=== PATIENT | female | born 1990 | race Caucasian/White ===

== ENCOUNTER → 2021-02-13 | Outpatient (CLI) | payer OTHER ==
--- NOTE | 2021-02-13 09:06 | RAD ---
EXAMINATION: US ABDOMEN COMPLETE CLINICAL HISTORY: Heartburn, nausea/vomiting TECHNIQUE: Grayscale sonographic imaging of the abdomen obtained with color Doppler imaging and spect ral Doppler analysis as indicated. COMPARISON: None FINDINGS: Pancreas: Normal sonographic appearance. - Portions obscured: Tail - Lesions: None Liver: - Echotexture: Normal, homogeneous. - Echogenicity: Increased, suggestive of steatosis. - Surface contour: Smooth - Lesions: None Biliary: No intrahepatic biliary duct dilation. - CBD: 6 mm. - Gallbladder: Normal caliber - Contents: No cholelithiasis - Wall: Normal - Other: No pericholecystic fluid. Spleen: - Craniocaudal length: 10.0 cm. - Lesions: None Right Kidney: - Renal length: 10.2 cm - Parenchyma: Normal parenchymal echogenicity. Normal parenchymal thickness. - Collecting system: No hydronephrosis. - Calculus: No echogenic, shadowing calculus. - Lesion: None Left Kidney: - Renal length: 10.7 cm - Parenchyma: Normal parenchymal echogenicity. Normal parenchymal thickness. - Collecting system: No hydronephrosis. - Calculus: No echogenic, shadowing calculus. - Lesion: None IVC: Imaged segments patent. Abdominal Aorta: Imaged segments patent. Ascites: None. IMPRESSION: Findings suggestive of hepatic steatosis. Electronically signed by: Javad French DO (02/13/2021 9:04 AM) [id number]
== END ==
LOC: US 07:42
PROVIDERS: ATTEND Internal Medicine Gastroenterology
DX: R12 Heartburn (principal); R11.2 Nausea with vomiting, unspecified
CPT/HCPCS: 76700

== ENCOUNTER 2021-05-02 10:59 | Emergency (ER) | payer OTHER ==
[~2021-05-02] VITALS: Ht 172.7 cm; Wt 104.7 kg
[2021-05-02] MEDS: ACETAMINOPHEN 500 MG TABLET PO ONE (11:38)
[2021-05-02] MEDS: IV NORMAL SALINE 1,000ML 1,000 ML IV ONE (11:39)
--- NOTE | 2021-05-02 11:47 | PHYS DOC ---
General Adult EDM: Chief Complaint: SHORTNESS OF BREATH HPI: HPI: 30-year-old female presents with body aches, fever, shortness of breath, fatigue. The patient is not vaccinated against COVID-19. Her symptoms started 3 days ago. She denies any serious medical history such as diabetes or heart disease. She has a fever on arrival of 102. She is pretty sure she has COVID- 19. Review of Systems: Review of Systems: Constitutional: Fever, body aches, fatigue. Eyes: Denies change in visual acuity HENT: Denies nasal congestion or sore throat Respiratory: Intermittent cough with shortness of breath Cardiovascular: Denies chest pain or edema GI: Denies abdominal pain, nausea, vomiting, bloody stools or diarrhea : Denies dysuria Musculoskeletal: Denies back pain or joint pain Integument: Denies rash Neurologic: Denies headache, focal weakness or sensory changes Endocrine: Denies polyuria or polydipsia Lymphatic: Denies swollen glands Psychiatric: Denies depression or anxiety Current Medications: Current Meds: Current Medications Medications (Trade) Dose Ordered Sig/Cory Start Time Stop Time Status Last Admin Dose Admin Acetaminophen (Tylenol) 1,000 mg 1X ONCE 05/02/21 11:30 05/02/21 11:31 DC Sodium Chloride 1,000 ml @ 1,000 mls/hr 1X ONCE 05/02/21 11:30 05/02/21 12:29 Allergies: Allergies: Allergies Coded Allergies Type Severity Reaction Last Updated Verified No Known Drug Allergies 05/02/21 No Physical Exam: PE: Constitutional: Well developed, well nourished, morbidly obese, no acute distress, non-toxic appearance. [] HENT: Normocephalic, atraumatic, bilateral external ears normal, oropharynx moist, no oral exudates, nose normal. [] Eyes: PERRLA, EOMI, conjunctiva normal, no discharge. [] Neck: Normal range of motion, no tenderness, supple, no stridor. [] Cardiovascular: Heart rate regular rhythm, no murmur [] Lungs & Thorax: Bilateral breath sounds clear to auscultation [] Abdomen: Bowel sounds normal, soft, no tenderness, no masses, no pulsatile masses. [] Skin: Warm, dry, no erythema, no rash. [] Back: No tenderness, no CVA tenderness. [] Extremities: No tenderness, no cyanosis, no clubbing, ROM intact, no edema. [] Neurologic: Alert and oriented X 3, normal motor function, normal sensory function, no focal deficits noted. [] Psychologic: Affect normal, judgement normal, mood normal. [] EKG: EKG: [] Radiology/Procedures: Radiology/Procedures: [] Impressions: INDICATION: Reason: covid / Spl. Instructions: / History: COMPARISON: None. FINDINGS: Single view of chest obtained. Hypoexpanded exam. Cardiac silhouette is prominent in size but likely exaggerated by portable technique. Focal opacity at the left lung base. IMPRESSION: * Focal opacity at the left lung base which could be infectious in nature with pneumonia. Follow-up could be obtained to ensure this appropriately resolves. Electronically signed by: Abhi Muhammad MD (05/02/2021 12:16 PM) [id number] DICTATED AND SIGNED BY: ABHI MUHAMMAD MD DATE: 05/02/21 1215 CC: NONI HARRELL DO; PERLITA SWEET DO ~MTH0 0 Heart Score: C/O Chest Pain: N/A Risk Factors: Risk Factors: DM, Current or recent (<one month) smoker, HTN, HLP, family history of CAD, obesity. Risk Scores: Score 0 - 3: 2.5% MACE over next 6 weeks - Discharge Home Score 4 - 6: 20.3% MACE over next 6 weeks - Admit for Clinical Observation Score 7 - 10: 72.7% MACE over next 6 weeks - Early Invasive Strategies Course & Med Decision Making: Course & Med Decision Making Pertinent Labs and Imaging studies reviewed. (See chart for details) The patient's story and evaluation are likely COVID-19. Her chest x-ray does show possible left lower infiltrate I will treat her with azithromycin and Decadron. I will discharge her with prescription for both. She is stable for discharge at this time. [] Dragon Disclaimer: Mabel Disclaimer: This electronic medical record was generated, in whole or in part, using a voice recognition dictation system. Departure Departure: Impression: Primary Impression: Suspected 2019 novel coronavirus infection Additional Impression: Pneumonia Qualified Codes: J18.9 - Pneumonia, unspecified organism Disposition: HOME / SELF CARE / HOMELESS Condition: STABLE Referrals: PERLTIA SWEET DO (PCP) Additional Instructions: You have been tested for or diagnosed with COVID-19. It is an infection caused by a new type of coronavirus. COVID-19 will cause cold-like or mild flu symptoms in most. It can cause more severe symptoms like problems breathing in some. There is no treatment for COVID-19. The body will clear the infection over time. Self-care will help to ease discomfort. Steps to Take: Self-Care Rest as needed. Healthy habits may help you feel better. Steps include: Choose healthy foods including fruits and vegetables. Drink water throughout the day. Get plenty of sleep each night. If you smoke, try to quit. It may ease breathing. Avoid alcohol. Keep Others Healthy The virus can spread to others. Droplets are released every time you sneeze or cough. The droplets can get into the mouth, nose, or eyes of people near you and lead to infection. To lower the chances of spreading COVID-19 to others: Stay at home until your doctor has said it is safe to leave. If you tested positive this will mean staying isolated until both of the following are true: At least 7 days have passed since the start of illness. You are free of fever for at least 72 hours without the use of medicine. During this time: - Avoid public areas, events, or transportation. Do not return to work or school until your doctor has said it is safe to do so. - Call ahead if you need to go to a medical center. Let them know you may have COVID-19. It will help them guide you where to go. They may also ask you to wear a facemask when you come to the office. - If you call for emergency medical services, let them know you may have COVID- 19. While at home: - Try to avoid close contact with others. Stay about 6 feet away. - If possible, spend most of your time in a separate room from others. - Use a face mask if you will be in close contact with others such as sharing a room or vehicle. - Have someone wipe down common surfaces in the home. Use household cargo station worker every day on areas like doorknobs, counters, or sinks. - Cough or sneeze into a tissue. Throw the tissue away right after use. If a tissue is not available, cough or sneeze into your elbow. - Wash your hands often. Wash them after sneezing or coughing. Use soap and wa ter and wash for at least 20 seconds. Alcohol based hand filter screen cleaner can be used if soap and water is not available. - Do not prepare food for others. Avoid sharing personal items like forks, spoons, or toothbrushes. - Avoid close contact with pets while you are sick. There is no evidence of the virus passing to pets. This is a safety step until more is known about this virus. Isolation can be frustrating. Social interaction can help. Keep in touch with friends and family through phone and tech options. You can still interact with others in your home, just keep a safe distance of about 6 feet. Follow-up: Your doctors office will check in with you to see if there are any changes in your health. You may be asked to keep track of symptoms to share with them. They will also let you know when you are clear to be in public again. Problems to Look Out For: Contact your doctor if your recovery is not going as you expect. Get emergency care if you have problems such as: - Trouble breathing - Nonstop chest pain or pressure - Changes in awareness, confusion, or problems waking - Lips or face have bluish color - Worsening of symptoms If you think you have an emergency, call for emergency medical services right away. [facility] Dexamethasone (Decadron) 4 Mg Tablet 1 TAB PO BID for covid for 3 Days, #6 TAB 0 Refills Prov: NONI HARRELL DO 05/02/21 Azithromycin (AZITHROMYCIN TABLET) 250 Mg Tablet 250 MG PO DAILY for ANTI-BIOTIC for 4 Days, #4 TAB 0 Refills Prov: NONI HARRELL DO 05/02/21 NONI HARRELL DO May 02, 2021 11:47
[2021-05-02 12:05] LABS: BASO % 0 % (0-3); EOS % 0 % (0-3); HEMOGLOBIN 13.5 g/dL (12.0-15.5); LYMPH # 0.6 x10^3/uL (1.0-4.8); LYMPH % 16 % (24-48); MEAN CORPUSCULAR HEMOGLOBIN 29 pg (25-35); MEAN CORPUSCULAR HGB CONC 34 g/dL (31-37); MEAN CORPUSCULAR VOLUME 86 fL (79-100); MONO # 0.2 x10^3/uL (0.0-1.1); MONO % 5 % (0-9); NEUT # 2.8 x10^3uL (1.8-7.7); NEUT % 79 % (31-73); PLATELET COUNT 127 x10^3/uL (140-400); RED BLOOD COUNT 4.66 x10^6/uL (3.50-5.40); RED CELL DISTRIBUTION WIDTH 12.6 % (11.5-14.5); WHITE BLOOD COUNT 3.5 x10^3/uL (4.0-11.0)
[2021-05-02 12:12] LABS: CALCIUM 8.2 mg/dL (8.5-10.1); CREATININE 0.8 mg/dL (0.6-1.0); GFR 83.7; POTASSIUM 3.7 mmol/L (3.5-5.1)
[2021-05-02 12:18] LABS: ALBUMIN 3.5 g/dL (3.4-5.0); ALBUMIN/GLOBULIN RATIO 0.9 (1.0-1.7); TOTAL BILIRUBIN 0.5 mg/dL (0.2-1.0); TOTAL PROTEIN 7.5 g/dL (6.4-8.2)
--- NOTE | 2021-05-02 12:18 | RAD ---
INDICATION: Reason: covid / Spl. Instructions: / History: COMPARISON: None. FINDINGS: Single view of chest obtained. Hypoexpanded exam. Cardiac silhouette is prominent in size but likely exaggerated by portable technique. Focal opacity a t the left lung base. IMPRESSION: * Focal opacity at the left lung base which could be infectious in nature with pneumonia. Follow-up could be obtained to ensure this appropriately resolves. Electronically signed by: Aldo Muhammad MD (05/02/2021 12:16 PM) [id number]
[2021-05-02] MEDS ORDERED: AZIT250T6 PO (12:56)
[2021-05-02] MEDS ORDERED: DEXA4TAB63 PO (12:57)
[2021-05-02] MEDS: AZITHROMYCIN 250 MG TABLET. PO ONE (13:09)
[2021-05-02] MEDS: DEXAMETHASONE SOD PHOS 10 MG/ML VIAL. PO ONE (13:10)
[2021-05-02 13:11] VITALS: BP 106/52
== END 2021-05-02 13:15 | disposition home or self-care (01) ==
LOC: ER 10:59
DX: U07.1 COVID-19 (principal); R06.02 Shortness of breath; R07.9 Chest pain, unspecified
CPT/HCPCS: 36415; 71045; 80053; 85025; 96360; 99284; C9803; J1100; J7030; U0003

== ENCOUNTER 2021-11-18 15:35 | Emergency (ER) | payer OTHER ==
[~2021-11-18] VITALS: Ht 172.7 cm; Wt 108.0 kg
[~2021-11-18 15:35] MED LIST: AZIT250T6 PO; DEXA4TAB63 PO
--- NOTE | 2021-11-18 16:12 | PHYS DOC ---
Past History Additional Past Medical Histor: cyclic vomiting syndrome, bowel obstructions Past Surgical History: , Other Additional Past Surgical Histo: BOWEL RECECTION X 2, ABDOMINAOPLASTY Alcohol Use: Rarely General Adult EDM: Chief Complaint: GI PROBLEM HPI: HPI: Patient is a 31-year-old female who presents with nausea vomiting and diarrhea. Symptoms been present for the last 3 to 4 days. She has a history of cyclic vomiting syndrome for which she is currently seeing gastroenterology for. She does have some crampy abdominal pain which is generalized. She has not had a fever. No blood in her emesis or in her stools. Patient does not smoke marijuana. She denies any chest pain, shortness of breath or cough. Review of Systems: Review of Systems: Constitutional: Denies fever Eyes: Denies change in visual acuity or eye pain HENT: Denies sore throat Respiratory: Denies shortness of breath Cardiovascular: Denies chest pain GI: Reports crampy abd pain : Denies dysuria Musculoskeletal: Denies back or extremity injury Integument: Denies rash or skin lesions Neurologic: Denies headache, focal weakness or sensory changes All other systems were reviewed and found to be within normal limits, except as documented in this note. Allergies: Allergies: Allergies Coded Allergies Type Severity Reaction Last Updated Verified No Known Drug Allergies 05/02/21 No Physical Exam: PE: Constitutional: Well developed, well nourished, no acute distress, non-toxic appearance. HENT: Normocephalic, atraumatic, bilateral external ears normal, mucosa moist, nose normal. Eyes: EOMI, conjunctiva normal, no discharge. Neck: Normal range of motion, supple, no stridor, no meningeal signs. Cardiovascular: Regular rate and rhythm Lungs & Thorax: Bilateral breath sounds clear to auscultation Abdomen: Soft, mild generalized tenderness, no obvious masses Skin: Warm, dry, no erythema, no rash. Extremities: No tenderness, no cyanosis, no clubbing, ROM intact, no edema. Neurologic: Alert and oriented, normal motor function, normal sensory function, no focal deficits noted. Psychologic: Affect normal, judgement normal, mood normal. Current Patient Data: Vital Signs: Vital Signs Date Time Temp Pulse Resp B/P (MAP) Pulse Ox O2 Delivery O2 Flow Rate FiO2 11/18/21 15:40 98.1 77 16 132/83 (99) 98 EKG: EKG: [] Radiology/Procedures: Radiology/Procedures: [] Heart Score: C/O Chest Pain: No Risk Factors: Risk Factors: DM, Current or recent (<one month) smoker, HTN, HLP, family history of CAD, obesity. Risk Scores: Score 0 - 3: 2.5% MACE over next 6 weeks - Discharge Home Score 4 - 6: 20.3% MACE over next 6 weeks - Admit for Clinical Observation Score 7 - 10: 72.7% MACE over next 6 weeks - Early Invasive Strategies Course & Med Decision Making: Course & Med Decision Making Pertinent Labs and Imaging studies reviewed. (See chart for details) [] Is a 31-year-old female with a history of cyclic vomiting syndrome. She presents with nausea and vomiting for last 3 to 4 days. On work-up her lab s tudies were fairly unremarkable. She did have some bacteria in her urine. She was given a liter of normal saline, 4 of Zofran and 20 Pepcid IV. On reassessment symptoms have improved. We will discharge with prescription for Bactrim DS 1 tab twice a day for 3 days, Zofran as needed and Pepcid twice a day for the next 10. 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 Mabel Disclaimer: Mabel Disclaimer: This electronic medical record was generated, in whole or in part, using a voice recognition dictation system. Departure Departure: Impression: Primary Impression: Nausea & vomiting Additional Impression: Bacteriuria Disposition: HOME / SELF CARE / HOMELESS Condition: STABLE Referrals: SVEN NAYLOR APRN (PCP) Patient Instructions: Asymptomatic Bacteriuria, Female, Cyclic Vomiting Syndrome, Nausea and Vomiting Scripts Famotidine (PEPCID) 20 Mg Tablet 1 TAB PO BID for abd pain, #20 TAB 3 Refills Prov: ABHI CABRERA MD 11/18/21 Ondansetron (ONDANSETRON ODT) 4 Mg Tab.rapdis 1 TAB PO Q6HRS for nausea, #20 TAB Prov: ABHI CABRERA MD 11/18/21 Sulfamethoxazole/Trimethoprim (BACTRIM DS TABLET) 1 Each Tablet 1 TAB PO BID for uti for 3 Days, #6 TAB 0 Refills Prov: ABHI CABRERA MD 11/18/21 ABHI CABRERA MD Nov 18, 2021 16:12
[2021-11-18] MEDS ORDERED: IV NORMAL SALINE 1,000ML 1,000 ML IV ONE (16:15)
[2021-11-18] MEDS ORDERED: FAMOTIDINE 20 MG/2 ML VIAL IVP ONE (16:15)
[2021-11-18] MEDS ORDERED: ONDANSETRON PF 4 MG/2 ML VIAL. IVP ONE (16:15)
[2021-11-18 16:31] LABS: U PREG PATIENT NEGATIVE (NEG)
[2021-11-18 16:50] LABS: CLARITY,URINE CLEAR; COLOR,URINE YELLOW; GLUCOSE,URINE NEG (NEG)
[2021-11-18 16:51] LABS: BACTERIA,URINE MANY /HPF (0-FEW); NITRITE,URINE NEG (NEG); SQUAMOUS EPITHELIAL CELL,UR MOD /LPF; UROBILINOGEN,URINE 0.2 mg/dL (0.2 mg/dL)
[2021-11-18 17:07] LABS: CREATININE 0.7 mg/dL (0.6-1.0); POTASSIUM 3.5 mmol/L (3.5-5.1)
[2021-11-18 17:13] LABS: ALBUMIN 3.8 g/dL (3.4-5.0); BASO % 0 % (0-3); EOS # 0.2 x10^3/uL (0.0-0.7); EOS % 2 % (0-3); HEMATOCRIT 41.3 % (36.0-47.0); HEMOGLOBIN 13.9 g/dL (12.0-15.5); LYMPH # 2.2 x10^3/uL (1.0-4.8); LYMPH % 22 % (24-48); MEAN CORPUSCULAR HEMOGLOBIN 29 pg (25-35); MEAN CORPUSCULAR HGB CONC 34 g/dL (31-37); MEAN CORPUSCULAR VOLUME 87 fL (79-100); MONO # 0.6 x10^3/uL (0.0-1.1); MONO % 6 % (0-9); NEUT # 7.1 x10^3uL (1.8-7.7); NEUT % 71 % (31-73); PLATELET COUNT 230 x10^3/uL (140-400); RED BLOOD COUNT 4.74 x10^6/uL (3.50-5.40); TOTAL BILIRUBIN 0.7 mg/dL (0.2-1.0); TOTAL PROTEIN 7.5 g/dL (6.4-8.2); WHITE BLOOD COUNT 10.1 x10^3/uL (4.0-11.0)
[2021-11-18 17:20] LABS: INFLUENZA A PATIENT NEGATIVE (NEGATIVE); INFLUENZA B PATIENT NEGATIVE (NEGATIVE)
[2021-11-18] MEDS ORDERED: FAMO-63 PO (17:40)
[2021-11-18] MEDS ORDERED: ONDA4TAB12 PO (17:40)
[2021-11-18] MEDS ORDERED: SULF1TAB24 PO (17:40)
[2021-11-18 17:50] VITALS: BP 127/69
== END 2021-11-18 17:50 | disposition home or self-care (01) ==
LOC: ER 15:35
DX: R82.71 Bacteriuria (principal); R11.2 Nausea with vomiting, unspecified; R19.7 Diarrhea, unspecified; R10.84 Generalized abdominal pain; Z98.890 Other specified postprocedural states
CPT/HCPCS: 36415; 80053; 81001; 81025; 83690; 85025; 87086; 87804; 96361; 96374; 96375; 99284; J2405; J3490; J7030; 87428